=== PATIENT | female | born 1975 | race Caucasian/White ===

== ENCOUNTER 2022-12-09 19:41 | Inpatient (IN) ==
[2022-12-09] MEDS ORDERED: MoRPHine SULFATE 4 MG/ML 1 ML CARP\\VIAL IV STA (19:53)
[2022-12-09] MEDS ORDERED: ONDANSETRON INJ 2 MG/ML 2 ML VIAL IV STA (19:53)
[2022-12-09] MEDS ORDERED: SODIUM CHLORIDE 0.9% 1000ML 1,000 ML IV ONE (19:53)
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
[2022-12-09 20:23] LABS: iSTAT Blood Urea Nitrogen < 3 mg/dl (7-18); iSTAT Carbon Dioxide 30 mmol/L (24-31); iSTAT Chloride 95 mmol/L (101-112); iSTAT Creatinine 0.7 mg/dl (0.6-1.3); iSTAT Glucose 94 mg/dl (70-99); iSTAT Hematocrit 38 % (37-47); iSTAT Hemoglobin 12.9 g/dl (12.0-16.0); iSTAT Ionized Calcium 1.16 mmol/l (1.12-1.32); iSTAT Potassium 2.9 mmol/L (3.3-5.0); iSTAT Sodium 141 mmol/L (135-144)
[2022-12-09] MEDS ORDERED: OPTIRAY 350 100ml IV ONE (20:24)
[2022-12-09 20:37] LABS: Basophils # (auto) 0.03 K/uL (0-0.2); Basophils % (auto) 0.4 %; Eosinophils # (auto) 0.27 K/uL (0-0.50); Eosinophils % (auto) 3.2 %; Hematocrit (blood only) 37.3 % (37.0-47.0); Hemoglobin 12.7 g/dl (12.0-16.0); Immature Granulocytes # (auto) 0.02 K/uL (0.01-0.20); Immature Granulocytes % (auto) 0.2 %; Lymphocytes # (auto) 2.11 K/uL (1.2-3.4); Lymphocytes % (auto) 24.8 %; Mean Corpuscular Hemoglobin 32.2 pg (25.0-34.0); Mean Corpuscular Volume 94.4 fL (80.0-100.0); Mean Platelet Volume 11.1 fL (9.4-12.4); Monocytes # (auto) 0.56 K/uL (0.11-0.59); Monocytes % (auto) 6.6 %; Neutrophils # (auto) 5.52 K/uL (1.40-6.50); Neutrophils % (auto) 64.8 %; Platelet Count 166 K/uL (130-400); RDW Coefficient of Variation 11.8 % (11.5-14.5); Red Blood Count 3.95 M/uL (4.20-5.40); White Blood Count 8.51 K/ul (4.8-10.8)
[2022-12-09 20:47] LABS: Albumin Globulin Ratio 1.3 (0.9-2); Albumin Level 3.9 gm/dl (3.4-5.0); BUN Creatinine Ratio 7.1 (10-20); Bilirubin,Total 0.5 mg/dl (0.2-1.0); Calcium 8.8 mg/dl (8.5-10.1); Creatinine Clr Calc Pharmacy 101.3 ml/min; Est GFR (African American) 120.4 ml/min; Est GFR (Non-African American) 103.9 ml/min; Globulin 3.1 gm/dl (2.5-4.0); Potassium 2.8 mmol/L (3.5-5.1)
--- NOTE | 2022-12-09 20:50 | CT Scan Report ---
CT SCAN OF THE CHEST WITH IV CONTRAST CLINICAL HISTORY: Chest wall injury. COMPARISON STUDY: Chest CT dated 07/22/2022. TECHNIQUE: Following the IV administration of 87 cc of Optiray 350, CT scan of the thorax was perform ed from the thoracic inlet to the upper abdomen. Images are reviewed in the axial, sagittal, and andrei nal planes. IV contrast was administered without complication. A dose lowering technique was utilize d adhering to the principles of ALARA. CT DOSE: 212.83 mGy.cm FINDINGS: Thyroid: Imaged portions of the thyroid gland are normal in size and attenuation. Thoracic aorta: The thoracic aorta is normal in caliber and demonstrates standard 3-vessel arch anato my. No dissection is seen. Pulmonary vasculature: The pulmonary trunk is normal in caliber. There are no filling defects identif ied in the central pulmonary vessels to indicate pulmonary embolus. Note that this examination was no t protocoled for evaluation of the pulmonary arteries. Heart: The heart is normal in size and without pericardial effusion. Lungs and pleural spaces: Evaluation of the lung parenchyma is degraded by motion artifact. Emphysema tous change is observed. There is no airspace consolidation typical for pneumonia or pleural effusion . Foci of parenchymal scarring are seen throughout both lungs. Secretions are noted in the trachea an d right mainstem bronchus. A fat-containing Bochdalek hernia is seen on the left. A 4 mm pleural-base d nodule in the right lower lobe on image #196 is unchanged. No new pulmonary nodule is identified. N o pneumothorax is seen. Mediastinum: There is no mediastinal hematoma or lymphadenopathy. Francia: Clear. Axillae: There is no axillary lymphadenopathy. Upper abdomen: Partially visualized upper abdominal viscera is within normal limits. Skeletal structures: The skeletal structures are osteopenic. There is an acute right anterior 4th rib fracture with surrounding hemorrhage. There are also acute fractures of the left anterior 5th throug h 7th ribs, also with overlying hemorrhage. No additional acute fractures identified. 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 Degenerative change is noted in the thoracic spine. No lytic or blastic bony lesions are seen. IMPRESSION: 1. Acute bilateral anterior rib fractures as above with overlying hemorrhage. 2. There is no airspace consolidation typical for pneumonia, pleural effusion, or pneumothorax. 3. Emphysema. 4. A 4 mm right lower lobe pulmonary nodule is unchanged as compared to 07/22/2022. This can be follo wed as per the Fleischner criteria clinically warranted. See below. 5. Additional findings as above. Please refer to below summary of Fleischner criteria recommendations for follow-up of incidental CT n odules (Antonieta Sousa, Guidelines for management of small pulmonary nodules detected on CT scans: A sta tement from the Fleischner Society, Radiology 237: [phone].) SOLID NODULES Solitary nodule size: <6 mm * low risk patients: no follow-up needed * high risk patients: optional CT at 12 months Solitary nodule size: 6-8 mm * low risk patients: follow-up at 6-12 months, then consider further follow-up at 18-24 months * high risk patients: initial follow-up CT at 6-12 months and then at 18-24 months if no change Solitary nodule size: >8 mm * either low or high risk patients - consider follow-up CT at 3 months, and/or CT-PET, and/or biopsy Multiple nodules size: <6 mm * low risk patients: no routine follow-up * high risk patients: optional CT at 12 months Multiple nodules size: 6-8 mm * low risk patients: follow-up at 3-6 months, then consider further follow-up at 18-24 months * high risk patients: follow-up at 3-6 months, then at 18-24 months if no change Multiple nodules size: >8 mm * low risk patients: follow-up at 3-6 months, then consider further follow-up at 18-24 months * high risk patients: follow-up at 3-6 months, then at 18-24 months if no change Note: newly detected indeterminate nodule in persons 35 years of age or older. * low risk patients: minimal or absent history of smoking and/or other known risk factors * high risk patients: history of smoking or of other known risk factors (e.g. first degree relative with lung cancer, or exposure to asbestos, radon, uranium) * if a nodule up to 8 mm is partly solid or is ground glass further follow-up is required after 24 m onths to exclude possible slow growing adenocarcinoma (SYLWIA) SUBSOLID NODULES Solitary pure ground-glass nodule * nodule size <6 mm - no CT follow-up required * nodule size >=6 mm - follow-up CT at 6-12 months, then every 2 years until 5 years Solitary part-solid nodule * nodule size <6 mm - no CT follow-up required * nodule size >=6 mm - follow-up CT at 3-6 months. If unchanged, and solid component remains <6 mm, then annual follow-up for 5 years Multiple subsolid nodules * nodule size <6 mm - follow-up CT at 3-6 months, consider further follow-up at 2 and 4 years if sta ble * nodule size >=6 mm - follow-up CT at 3-6 months, subsequent management based on the most suspiciou s nodule(s) ACT 112: Negative or not required by law. Electronically signed by: Ralf Florian M.D. 12/09/2022 8:48 PM
[2022-12-09 20:53] LABS: Troponin I High Sensitivity 4.2 pg/ml (0-14)
[2022-12-09] MEDS ORDERED: LIDOCAINE 5% 1 PATCH TD SCH ×2 (21:20→21:25)
[2022-12-09] MEDS ORDERED: POTASSIUM CHLORIDE PWD 20 MEQ PACK PO STA (21:27)
--- NOTE | 2022-12-09 21:42 | Surgery Consultation ---
I discussed this case with the surgical PA and reviewed all of her admission work up. I agree with the plan. Date of Consultation December 09, 2022 Assessment & Plan (1) Rib fractures: I discussed with the treating emergency room physician and due to the patient's hypoxia he is having the patient admitted on the hospitalist service. We recommend proceeding as follows: I discussed with the patient and her son at bedside and noted that the mainstay of treatment for rib fractures is pain control. I discussed with them that without adequate pain control be difficult for her to take deep breaths which would predispose her to atelectasis and pneumonia. We therefore recommend the following: Would recommend placing the patient on scheduled Tylenol Would recommend placing the patient on as needed oxycodone for pain Lidoderm patch could be employed Would recommend obtaining an incentive spirometer for the patient and having her utilize this several times per hour. Early and continued ambulation would be beneficial to her recovery Would recommend following serial chest x-rays to ensure she does not develop any pleural effusion or pneumothorax. As noted this was not present on patient's CT scan which was performed 4 days after her injury Would make attempts to wean supplemental oxygen as able. The patient was noted to have a Bochdalek hernia noted which is likely an incidental finding as it contains fat. If she desires repair of this in the future this can be attempted on an elective basis. Additional recommendations be forthcoming based on her clinical course as it unfolds History of Present Illness Reason for Consultation: Acute rib fractures, bilateral History of Present Illness This is a 47-year-old female who recently suffered a mechanical fall at home approximately 4 days ago. Patient says that she was ambulating when she tripped on a rug ultimately losing her balance and falling. Patient says that when she fell she landed on her left side striking her left ribs. She initially did not seek medical attention and she felt that she was able to manage her pain at home but she notes that over the ensuing 4 days she had increasing left-sided rib pain that has been getting difficult to manage at home. The patient notes that her pain is worse when she takes a deep breath and also worse when she coughs. I specifically asked the patient about her fall and again she notes it was a mechanical fall specifically stating she did not pass out or blackout prior to falling. Prior to falling she did not experience any chest pain or shortness of breath and again notes she merely tripped over a rug. She notes that she did not hit her head or lose consciousness. Since falling she does not have any diplopia or blurred vision. She has not had any rhinitis. She denies any headache. She denies any abdominal pain. She also denies any nausea or vomiting. She also reports no hematuria or difficulty urinating and also denies any back pain. At the present time she notes pain on her left side near her left lateral inferior ribs. She notes that the pain does not radiate but it is worse when she takes deep breaths and again when she coughs. Since arrival to the emergency department the patient has had labs and imaging which I independently reviewed. CT scan of the chest showed that she had acute bilateral anterior rib fractures with some overlying hemorrhage. She was specifically noted to have an acute fracture of the anterior right fourth rib. She was also noted to have acute fractures of the left anterior ribs numbers 5 through 7.. There is no airspace consolidations concerning for pneumonia. There is no pneumothorax and there is no pleural effusion. Patient was noted to have a 4 mm right lower lobe pulmonary nodule. This nodule did appear unchanged when compared to prior CT scans. A fat-containing Bochdalek hernia was noted on the left-hand side. There is no evidence of aortic dissection. There is no evidence of mediastinal hematoma. The upper abdomen was partially visualized and the viscera was noted to be normal without any evidence of injury. Labs include a CBC her white blood cell count, hemoglobin, hematocrit, and platelet count were normal. Chemistry profile showed sodium was normal her potassium was low at 2.8. BUN and creatinine were noted to be 5 and 0.7. There is no elevation of patient's LFTs or lipase. An EKG showed normal sinus rhythm with nonspecific ST and T wave abnormalities but there were no changes indicative of acute ischemia. Since arrival to the emergency department the patient was noted to be intermittently hypoxic requiring supplemental oxygen. The treating emergency room physician therefore felt admission was required. At the time of my arrival the patient was not in any distress. Allergies Allergy/AdvReac Type Severity Reaction Status Date / Time aspirin Allergy Severe ANAPHYLAXIS Verified 12/09/22 21:37 Cipro Allergy Severe ANAPHYLAXIS Unverified 02/24/15 02:27 -Hives ciprofloxacin [Cipro] Allergy Severe ANAPHYLAXIS Unverified 12/09/22 21:37 -Hives clindamycin Allergy Severe ANAPHYLAXIS Verified 12/09/22 21:37 ketorolac Allergy Severe ANAPHYLAXIS-GI Verified 12/09/22 21:37 symptoms meloxicam Allergy Unknown COULDN'T Verified 12/09/22 21:37 BREATHE Patient History Medical History COPD (chronic obstructive pulmonary disease) Social History Smoking Status: Current every day smoker Tobacco Type: Cigarettes Preferred Language: Singaporean Feels Safe at Home: Yes Review of Systems Constitutional: no fever and no chills Eyes: no diplopia Ear, Nose, Mouth, Throat: no ear pain Respiratory: + pain on inspiration; no cough Cardiovascular: + chest pain (Chest wall pain greatest on the left) Gastrointestinal: no abdominal pain, no nausea and no vomiting Genitourinary: no dysuria and no hematuria Musculoskeletal: no back pain Integumentary: no rash Neurologic: no localized weakness Physical Exam Constitutional: WD/WN, vitals as above Eyes: PERRL, conjunctivae normal, anicteric sclerae ENMT: Ears: no hearing impairment and no external ear abnormality Mouth: no oropharynx abnormality Neck: trachea midline Respiratory: Breath sounds are present bilaterally without rhonchi or wheezing. Breath sounds were noted to be decreased at the bases with the left greater than the right. Respiratory effort was limited due to pain from her rib fractures. Cardiovascular: Rate/Rhythm: regular rate and regular rhythm Gastrointestinal (Abdomen): Soft, nonrigid, nondistended, and nontender to palpation. There is no rebound tenderness or guarding. Patient was noted to have small ecchymosis in her abdomen bilaterally in the lower quadrants that the patient says have been present as she takes Lovenox injections. Musculoskeletal: No calf tenderness Skin: no rashes Ecchymosis in the lower abdomen as noted above. There were no areas of hematoma or ecchymosis on the chest wall. Neurologic: moves all extremities Psychiatric: A+Ox3, euthymic affect Results & Data ([facility]) Vital Signs (Past 12 Hours) Vital Signs Temp Pulse Resp BP Pulse Ox O2 Del Method O2 Flow Rate 12/09/22 20:50 99 H 17 122/91 98 Nasal Cannula 4 12/09/22 20:52 96 H 12/09/22 20:43 85 L Room Air 0 12/09/22 19:53 86 L Room Air 0 12/09/22 19:53 85 L Room Air 3 12/09/22 19:53 22 12/09/22 19:45 37 C 92 H 20 150/91 H 91 Room Air PG Care Time/CCT Total # of Minutes Spent Total Time Spent with Patient: Total time spent is greater than 50% in coordination of care (as documented) at patient's floor/unit and/or counseling patient: Coding Level of Care Code 50376 IN/OBS CONSULT LVL 5,80M Diagnoses Rib fractures S22.49XA
[2022-12-09] MEDS ORDERED: METOPROLOL TARTRATE 25 MG TAB PO STA (22:13)
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
[2022-12-09] MEDS ORDERED: MoRPHine SULFATE 4 MG/ML 1 ML CARP\\VIAL IV PRN (22:22)
[2022-12-09] MEDS ORDERED: PROMETHAZINE HCL 6.25 MG in SODIUM CHLORIDE 0.9% 50 ML IV PRN (22:22)
[2022-12-09] MEDS ORDERED: ALPRAZolam 0.5 MG TABLET PO STA (22:23)
[2022-12-09] MEDS ORDERED: POTASSIUM CHLORIDE CRTAB 20 MEQ TABCR PO STA (22:23)
[2022-12-09] MEDS ORDERED: LACTATED RINGER'S 1,000 ML IV ONE (22:25)
[2022-12-09] MEDS: oxyCODONE HCL IR 5 MG TAB (IMMEDIATE RELEASE) PO PRN (22:40)
[2022-12-09] MEDS: NICOTINE 21 MG/24 HR TDSY TD SCH (22:41)
[2022-12-09] MEDS: ACETAMINOPHEN 500 MG TAB PO SCH (22:45)
[2022-12-09 23:06] LABS: Magnesium 1.7 mg/dl (1.7-2.4)
[2022-12-09] MEDS ORDERED: MAGNESIUM SULFATE / D5W 1 GM/100 ML BAG IV ONE (23:28)
[2022-12-10] MEDS ORDERED: POTASSIUM CHLORIDE PWD 20 MEQ PACK PO ONE
[2022-12-10] MEDS ORDERED: ALPRAZolam 0.5 MG TABLET PO PRN (00:03)
[2022-12-10] MEDS ORDERED: MoRPHine SULFATE 4 MG/ML 1 ML CARP\\VIAL IV PRN (00:56)
[2022-12-10] MEDS ORDERED: POTASSIUM CHLORIDE CRTAB 20 MEQ TABCR PO ONE (02:00)
[2022-12-10] MEDS: ACETAMINOPHEN 500 MG TAB PO SCH (06:16)
[2022-12-10] MEDS: oxyCODONE HCL IR 5 MG TAB (IMMEDIATE RELEASE) PO PRN ×2 (06:16→13:12)
[2022-12-10 08:29] LABS: Basophils # (auto) 0.03 K/uL (0-0.2); Basophils % (auto) 0.5 %; Eosinophils # (auto) 0.27 K/uL (0-0.50); Eosinophils % (auto) 4.3 %; Hematocrit (blood only) 35.7 % (37.0-47.0); Hemoglobin 11.9 g/dl (12.0-16.0); Immature Granulocytes # (auto) 0.02 K/uL (0.01-0.20); Immature Granulocytes % (auto) 0.3 %; Lymphocytes # (auto) 1.53 K/uL (1.2-3.4); Lymphocytes % (auto) 24.2 %; Mean Corpuscular Hemoglobin 32.2 pg (25.0-34.0); Mean Corpuscular Hgb Conc 33.3 g/dL (32.0-36.0); Mean Corpuscular Volume 96.5 fL (80.0-100.0); Monocytes # (auto) 0.42 K/uL (0.11-0.59); Monocytes % (auto) 6.7 %; Neutrophils # (auto) 4.04 K/uL (1.40-6.50); Platelet Count 162 K/uL (130-400); RDW Standard Deviation 41.8 fL (36.4-46.3); White Blood Count 6.31 K/ul (4.8-10.8)
[2022-12-10 08:34] LABS: Partial Thromboplastin Ratio 1.1; Partial Thromboplastin Time 29.2 Seconds (21.0-31.0)
[2022-12-10] MEDS: NICOTINE 21 MG/24 HR TDSY TD SCH (08:48)
[2022-12-10] MEDS ORDERED: METHADONE ORAL SOLN 2 MG/ML PO SCH (09:00)
[2022-12-10] MEDS ORDERED: PANTOprazole 40 MG TAB PO SCH (09:00)
[2022-12-10] MEDS ORDERED: MONTELUKAST SODIUM 10 MG TABLET PO SCH (09:00)
[2022-12-10] MEDS ORDERED: REMOVE LIDODERM SCH (09:00)
[2022-12-10] MEDS ORDERED: DOCUSATE SODIUM/SENNA 50/8.6MG TAB PO SCH (09:00)
[2022-12-10] MEDS ORDERED: METHADONE PO SCH (09:00)
[2022-12-10] MEDS ORDERED: CETIRIZINE HCL 10 MG TABLET PO SCH (09:00)
[2022-12-10] MEDS ORDERED: METOPROLOL TARTRATE 25 MG TAB PO SCH (09:00)
[2022-12-10 09:04] LABS: Potassium 3.8 mmol/L (3.5-5.1)
[2022-12-10 09:10] LABS: BUN Creatinine Ratio 6.3 (10-20); Creatinine Clr Calc Pharmacy 110.8 ml/min
[2022-12-10] MEDS ORDERED: ALBUT/IPRATROP 3MG/0.5MG NEB 3 ML VIAL NEB SCH (09:35)
[2022-12-10] MEDS ORDERED: SODIUM CHLOR 7% 4 ML NEB NEB SCH (09:35)
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
--- NOTE | 2022-12-12 05:54 | Electrocardiogram Report ---
Test Reason : Blood Pressure : / mmHG Vent. Rate : 096 BPM Atrial Rate : 096 BPM P-R Int : 182 ms QRS Dur : 084 ms QT Int : 400 ms P-R-T Axes : 070 074 065 degrees QTc Int : 506 ms Sinus rhythm with occasional Premature ventricular complexes Nonspecific ST and T wave abnormality Prolonged QT Abnormal ECG When compared with ECG of 02-DEC-2022 22:10, Premature ventricular complexes are now Present Vent. rate has increased BY [address] now depressed in Lateral leads Confirmed by Tone Cobian ([id number]) on 12/12/2022 5:54:20 AM Referred By: REFERRED SELF Confirmed By:Tone Cobian
== END 2022-12-10 14:15 | disposition home or self-care (01) | DRG 189 ==
LOC: ED 19:41 → 2W 22:20
DX: Y07.9 Unspecified perpetrator of maltreatment and neglect; S22.43XA Multiple fractures of ribs, bilateral, initial encounter for closed fracture; F39 Unspecified mood [affective] disorder; Z91.048 Other nonmedicinal substance allergy status; G89.29 Other chronic pain; F41.9 Anxiety disorder, unspecified; J96.01 Acute respiratory failure with hypoxia; F42.9 Obsessive-compulsive disorder, unspecified; Y04.8XXA Assault by other bodily force, initial encounter; E03.9 Hypothyroidism, unspecified; E87.6 Hypokalemia; D68.51 Activated protein C resistance; F17.210 Nicotine dependence, cigarettes, uncomplicated; Z20.822 Contact with and (suspected) exposure to COVID-19; Z88.6 Allergy status to analgesic agent; Z79.891 Long term (current) use of opiate analgesic; Z79.899 Other long term (current) drug therapy; S29.8XXA Other specified injuries of thorax, initial encounter; Z86.711 Personal history of pulmonary embolism; J44.9 Chronic obstructive pulmonary disease, unspecified; Z88.1 Allergy status to other antibiotic agents; Z79.01 Long term (current) use of anticoagulants; I10 Essential (primary) hypertension; Z91.040 Latex allergy status